=== PATIENT | female | born 2000 | race Caucasian/White ===

== ENCOUNTER 2019-05-31 17:34 | Emergency (ER) | payer MEDICAID ==
--- NOTE | 2019-05-31 18:37 | ER Document Report ---
ED Medical Screen (RME) - General Chief Complaint: Ear Pain Stated Complaint: EAR PAIN Time Seen by Provider: 05/31/19 18:30 Information source: Patient Notes: Patient presents complaining of left ear pain, sore throat pelvic pain with vaginal spotting. Patient had an IUD recently placed last month. I have greeted and performed a rapid initial assessment of this patient. A comprehensive ED assessment and evaluation of the patient, analysis of test results and completion of the medical decision making process will be conducted by additional ED providers. - Related Data Allergies/Adverse Reactions: No Known Allergies Allergy (Unverified 05/31/19 18:14) Physical Exam - Vital signs Vitals: Temp Pulse Resp BP Pulse Ox 98.4 F 92 16 120/72 100 05/31/19 18:11 05/31/19 18:11 05/31/19 18:11 05/31/19 18:11 05/31/19 18:11 - General General appearance: Appears well, Alert Notes: Lower pelvic tenderness, left ear pain Course - Vital Signs Vital signs: Temp Pulse Resp BP Pulse Ox 98.4 F 92 16 120/72 100 05/31/19 18:11 05/31/19 18:11 05/31/19 18:11 05/31/19 18:11 05/31/19 18:11
--- NOTE | 2019-05-31 19:48 | RADIOLOGY REPORT (SQ) ---
EXAM DESCRIPTION: U/S NON OB PEL TV W/DOPPLER COMPLETED DATE/TIME: 05/31/2019 7:36 pm REASON FOR STUDY: pelvic pain, spotting, eval IUD COMPARISON: None. TECHNIQUE: Dynamic and static grayscale images acquired of the pelvis via transvaginal approach and recorded on PACS. Additional selected color Doppler and spectral images recorded. LIMITATIONS: None. FINDINGS: UTERUS: Contour normal. No mass. ENDOMETRIAL STRIPE: IUD present in expected position. No masses identified. CERVIX: Tiny nabothian cysts. RIGHT OVARY AND DOPPLER: Normal size. No worrisome masses. Normal arterial vascular flow without evid ence for torsion. LEFT OVARY AND DOPPLER: Normal size. No worrisome masses. Normal arterial vascular flow without evide nce for torsion. FREE FLUID: None noted. OTHER: No other significant finding. MEASUREMENTS: UTERUS: 5.9 x 3.7 x 4.2 cm ENDOMETRIAL STRIPE: 6 mm RIGHT OVARY: 3.3 x 2.9 x 2.7 cm LEFT OVARY: 3.2 x 1.9 x 1.6 cm IMPRESSION: IUD present in expected position. Age-appropriate exam. TECHNICAL DOCUMENTATION: JOB ID: [id number] [place]-72 2010 [employer]- All Rights Reserved Rev Reading location - IP/workstation name: [email or web address]
[2019-05-31] MEDS ORDERED: ACETAMINOPHEN 325 MG TABLET PO ONE (20:12)
--- NOTE | 2019-05-31 21:10 | ER Document Report ---
ED General - General Chief Complaint: Ear Pain Stated Complaint: EAR PAIN Time Seen by Provider: 05/31/19 18:30 Primary Care Provider: [facility] [Provider Group] - Follow up in 1 week - [facility] Notes: 19-year-old female to the emergency department with complaints of left ear pain for the past several days and pelvic cramping and vaginal bleeding for the past several weeks after having a Mirena IUD placed on April 30. She denies any sore throat, cough, fevers, chills. She states that it feels like her ear canal is swollen and also the outer ear. Does report that her ear pain does run down to the side of her jaw and it feels like her throat hurts. She has not taken any medicine for her pain. She states that her NUTRITION REPRESENTATIVE did tell her that the Mirena could cause cramping and bleeding but that is atypical for her and so she wanted to have the IUD evaluated. She denies any concern for STD. She denies urinary complaints. - Related Data Allergies/Adverse Reactions: No Known Allergies Allergy (Unverified 05/31/19 18:14) Past Medical History - General Information source: Patient - Social History Smoking Status: Never Smoker Frequency of alcohol use: Occasional Drug Abuse: None Family History: Reviewed & Not Pertinent Patient has suicidal ideation: No Patient has homicidal ideation: No Renal/ Medical History: Denies: Hx Peritoneal Dialysis Review of Systems - Review of Systems Constitutional: denies: Chills, Fever EENT: Ear pain Cardiovascular: denies: Chest pain, Palpitations, Syncope, Dizziness, Lightheaded Respiratory: denies: Cough, Short of breath Gastrointestinal: denies: Diarrhea, Nausea, Vomiting Genitourinary: denies: Frequency, Flank pain, Hematuria Female Genitourinary: Heavy/abnormal periods, Vaginal bleeding, Other - Cramping. denies: Musculoskeletal: No symptoms reported Skin: No symptoms reported Neurological/Psychological: No symptoms reported -: Yes All other systems reviewed and negative Physical Exam - Vital signs Vitals: Temp Pulse BP Pulse Ox 98.4 F 97 120/72 98 05/31/19 18:07 05/31/19 18:07 05/31/19 18:07 05/31/19 18:07 Interpretation: Normal - General General appearance: Appears well, Alert In distress: None - HEENT Head: Normocephalic, Atraumatic Eyes: Normal Pupils: PERRL External canal: Erythema, Swollen, Other - There is mild erythema and edema to the outer left ear canal. There is pain with pulling on the auricle. The left TM is mildly erythematous without bulging or rupture.. No: Blood in canal, Cerumen impaction Sinus: Normal Nasal: Normal Mouth/Lips: Normal Mucous membranes: Normal Pharynx: Normal Neck: Normal - Respiratory Respiratory status: No respiratory distress Chest status: Nontender Breath sounds: Normal Chest palpation: Normal - Cardiovascular Rhythm: Regular Heart sounds: Normal auscultation Murmur: No - Abdominal Inspection: Normal Distension: No distension Bowel sounds: Normal Tenderness: Nontender Organomegaly: No organomegaly - Genitourinary Notes: Patient declines pelvic exam - Back Back: Normal, Nontender - Extremities General lower extremity: No: Judy's sign - Neurological Neuro grossly intact: Yes Cognition: Normal Orientation: AAOx4 Eduardo Coma Scale Eye Opening: Spontaneous Eduardo Coma Scale Verbal: Oriented [place] Coma Scale Motor: Obeys Commands Eduardo Coma Scale Total: 15 Speech: Normal Motor strength normal: LUE, RUE, LLE, RLE Sensory: Normal - Psychological Associated symptoms: Normal affect, Normal mood - Skin Skin Temperature: Warm Skin Moisture: Dry Skin Color: Normal Course - Vital Signs Vital signs: Temp Pulse Resp BP Pulse Ox 98.4 F 70 15 119/73 100 05/31/19 18:11 05/31/19 21:47 05/31/19 21:47 05/31/19 21:47 05/31/19 21:47 - Diagnostic Test Radiology reviewed: Image reviewed, Reports reviewed - Noted ultrasound reading with IUD in place. - Transfer of Care Notes: 06/01/19 impression: The cramping after IUD placement with vaginal bleeding. Left otitis externa with concern for possible evolving otitis media. Ultrasound shows IUD in appropriate position. UA is reassuring. Patient will not allow for pelvic exam tonight. Will treat otitis externa with antibiotic eardrops and also go ahead and start on oral antibiotics for possible evolving otitis media. Patient agrees with the plan. We will have her follow with primary care in the next several days. Have urged her to return if she is worse at all. Do not think that she needs further blood work. Discharge - Discharge Clinical Impression: Otitis externa, Left ear pain, Pelvic pain, IUD (intrauterine device) in place Condition: Good Disposition: HOME, SELF-CARE Additional Instructions: COMPLETE ANTIBIOTICS. RETURN IF WORSE. PUSH FLUIDS. RETURN IF WORSE. Prescriptions: Amoxicillin [Amoxicillin Trihydrate] 500 gm MC TID #30 powder Neomy Sulf/Polymyx B Sulf/Hc [Cortisporin Ear Suspension] 10 ml OT QID #1 bottle Referrals: [facility] [Provider Group] - Follow up in 1 week
[2019-05-31 21:23] LABS: APPEARANCE,URINE CLEAR; BILIRUBIN,URINE NEGATIVE (NEGATIVE); COLOR,URINE COLORLESS; GLUCOSE, URINE NEGATIVE (NEGATIVE); KETONES,URINE NEGATIVE (NEGATIVE); LEUKOCYTE ESTERASE,URINE NEGATIVE (NEGATIVE); NITRITE,URINE NEGATIVE (NEGATIVE); PROTEIN,URINE NEGATIVE (NEGATIVE); UROBILINOGEN,URINE NEGATIVE mg/dL (<2.0)
[2019-05-31 21:34] LABS: URINE SPECIFIC GRAVITY 1.011
[2019-05-31 21:51] VITALS: BP 119/73
== END 2019-05-31 21:51 | disposition home or self-care (01) ==
LOC: ER 17:34
DX: H60.92 Unspecified otitis externa, left ear (principal); H92.02 Otalgia, left ear; R10.2 Pelvic and perineal pain; N93.9 Abnormal uterine and vaginal bleeding, unspecified; Z97.5 Presence of (intrauterine) contraceptive device
CPT/HCPCS: 76830; 81001; 81025; 87070; 87880; 93976; 99283

== ENCOUNTER 2019-07-01 14:12 | Emergency (ER) | payer MEDICAID ==
--- NOTE | 2019-07-01 14:34 | ER Document Report ---
ED Medical Screen (RME) - General Chief Complaint: Lower Abdominal Pain Stated Complaint: ABDOMINAL PAIN Time Seen by Provider: 07/01/19 14:29 Mode of Arrival: Ambulatory Information source: Patient Notes: 19-year-old female presented to ED for complaint of right lower quadrant/pelvic pain weeks. She states she was having episodes of passing out from June of last year until April of this year and she stopped and then she passed out again yesterday. She states she has been having nausea but no vomiting. She states she might of hit her head yesterday but there is no neurological deficits. She has a history of ovarian cyst. She states she has had decreased appetite for the last week as well as diarrhea off and on for this week but she is only had one stool today. She does have a history of ovarian cyst asthma hypothyroid cyst removed from a hand and ear tubes. She is alert oriented respirations regular and unlabored speaking in full sentences and walks with even steady gait. I have greeted and performed a rapid initial assessment of this patient. A comprehensive ED assessment and evaluation of the patient, analysis of test results and completion of medical decision making process will be conducted by an additional ED providers. Dictation of this chart was performed using voice recognition software; therefore, there may be some unintended grammatical errors. TRAVEL OUTSIDE OF THE [place] IN LAST 30 DAYS: No - Related Data Allergies/Adverse Reactions: No Known Allergies Allergy (Verified 07/01/19 14:13) Past Medical History Renal/ Medical History: Denies: Hx Peritoneal Dialysis Physical Exam - Vital signs Vitals: Temp Pulse Resp BP Pulse Ox 97.9 F 105 H 14 139/72 H 97 07/01/19 14:16 07/01/19 14:16 07/01/19 14:16 07/01/19 14:16 07/01/19 14:16 Course - Vital Signs Vital signs: Temp Pulse Resp BP Pulse Ox 97.9 F 105 H 14 139/72 H 97 07/01/19 14:16 07/01/19 14:16 07/01/19 14:16 07/01/19 14:16 07/01/19 14:16
[2019-07-01 15:10] LABS: ABSOLUTE BASOPHILS # (AUTO) 0.1 10^3/uL (0.0-0.2); ABSOLUTE EOSINOPHILS # (AUTO) 0.2 10^3/uL (0.0-0.6); ABSOLUTE LYMPHOCYTES (AUTO) 2.4 10^3/uL (0.5-4.7); ABSOLUTE MONOCYTES (AUTO) 0.8 10^3/uL (0.1-1.4); BASOPHILS % (AUTO) 0.9 % (0-2); EOSINOPHILS % (AUTO) 2.3 % (0-6); HEMATOCRIT 41.8 % (36.0-47.0); HEMOGLOBIN 13.7 g/dL (12.0-15.5); LYMPHOCYTES % (AUTO) 25.5 % (13-45); MEAN CORPUSCULAR HEMOGLOBIN 27.7 pg (27.0-33.4); MEAN CORPUSCULAR HGB CONC 32.9 g/dL (32.0-36.0); MEAN CORPUSCULAR VOLUME 84 fl (80-97); MONOCYTES % (AUTO) 8.3 % (3-13); PLATELET COUNT 188 10^3/uL (150-450); RED BLOOD COUNT 4.96 10^6/uL (3.72-5.28); RED CELL DISTRIBUTION WIDTH 14.1 % (11.5-14.0); TOTAL CELLS COUNTED % (AUTO) 100 %; WHITE BLOOD COUNT 9.5 10^3/uL (4.0-10.5)
[2019-07-01 15:27] LABS: APPEARANCE,URINE SLIGHTLY-CLOUDY; BILIRUBIN,URINE NEGATIVE (NEGATIVE); COLOR,URINE YELLOW; GLUCOSE, URINE NEGATIVE (NEGATIVE); KETONES,URINE NEGATIVE (NEGATIVE); LEUKOCYTE ESTERASE,URINE MODERATE (NEGATIVE); NITRITE,URINE NEGATIVE (NEGATIVE); PROTEIN,URINE NEGATIVE (NEGATIVE); UROBILINOGEN,URINE NEGATIVE mg/dL (<2.0)
[2019-07-01 15:32] LABS: ALBUMIN 4.7 g/dL (3.5-5.0); ALKALINE PHOSPHATASE 77 U/L (38-126); ANION GAP 12 (5-19); ASPARTATE AMINO TRANSFERASE 21 U/L (14-36); BILIRUBIN,DIRECT 0.1 mg/dL (0.0-0.4); BILIRUBIN,TOTAL 0.5 mg/dL (0.2-1.3); BLOOD UREA NITROGEN 13 mg/dL (7-20); CALCIUM 9.4 mg/dL (8.4-10.2); CARBON DIOXIDE 25 mmol/L (22-30); CHLORIDE 101 mmol/L (98-107); CREATINE KINASE 116 U/L (30-135); GLUCOSE 80 mg/dL (75-110); TOTAL PROTEIN 7.8 g/dL (6.3-8.2)
--- NOTE | 2019-07-01 15:33 | RADIOLOGY REPORT (SQ) ---
EXAM DESCRIPTION: U/S ABDOMEN LTD W/DOPPLER COMPLETED DATE/TIME: 07/01/2019 3:20 pm REASON FOR STUDY: check appendix and gall bladder kidney COMPARISON: None. TECHNIQUE: Dynamic and static grayscale images acquired of the abdomen and recorded on PACS. Additio nal selected color Doppler and spectral images recorded. LIMITATIONS: None. FINDINGS: PANCREAS: No masses. Visualized pancreatic duct normal caliber. LIVER: No masses. Echotexture normal. LIVER VASCULATURE: Normal directional flow of the main portal vein and hepatic veins. GALLBLADDER: No stones. Normal wall thickness. No pericholecystic fluid. ULTRASOUND-DETECTED ALVARENGA'S SIGN: Negative. INTRAHEPATIC DUCTS AND COMMON DUCT: CBD and intrahepatic ducts normal caliber. No filling defects. INFERIOR VENA CAVA: Normal flow. AORTA: No aneurysm identified. RIGHT KIDNEY: Normal size. Normal echogenicity. No solid or suspicious masses. No hydronephros is. No calcifications. PERITONEAL AND RIGHT PLEURAL SPACE: No ascites or effusions. OTHER: Appendix not visualized in the right lower quadrant. IMPRESSION: NO ACUTE FINDINGS. Appendix not visualized in the right lower quadrant. TECHNICAL DOCUMENTATION: JOB ID: [id number] [place]-72 2010 [employer]- All Rights Reserved Reading location - IP/workstation name: [email or web address]
[2019-07-01 15:37] LABS: ADD MANUAL MICROSCOPIC YES
[2019-07-01 15:38] LABS: BACTERIA,URINE TRACE /HPF; RBC,URINE 0-1 /HPF
--- NOTE | 2019-07-01 15:58 | RADIOLOGY REPORT (SQ) ---
EXAM DESCRIPTION: U/S NON OB PEL TV W/DOPPLER COMPLETED DATE/TIME: 07/01/2019 3:42 pm REASON FOR STUDY: right lower abdominal pain COMPARISON: 05/31/2019 TECHNIQUE: Dynamic and static grayscale images acquired of the pelvis via transvaginal approach and recorded on PACS. Additional selected color Doppler and spectral images recorded. LIMITATIONS: None. FINDINGS: UTERUS: Contour normal. No mass. ENDOMETRIAL STRIPE: No focal or generalized thickening. No masses. IUD is present in the endometrial cavity. CERVIX: No nabothian cysts. RIGHT OVARY AND DOPPLER: Normal size. No worrisome masses. Multiple small follicles. Normal arteria l vascular flow without evidence for torsion. LEFT OVARY AND DOPPLER: Normal size. No worrisome masses. Cyst measuring 3.1 cm. Normal arterial va scular flow without evidence for torsion. FREE FLUID: None noted. OTHER: No other significant finding. MEASUREMENTS: UTERUS: 7.9 x 4.3 x 3.9 cm ENDOMETRIAL STRIPE: 4 mm. IUD is present in the endometrial cavity. RIGHT OVARY: 2.2 x 2.7 x 1.7 cm LEFT OVARY: 3.5 x 2.8 x 2.9 cm IMPRESSION: 1. IUD is present in the endometrial cavity without significant change in position comp ared to prior examination. 2. Simple left ovarian cyst, almost certainly benign and functional. 3. No ultrasound findings to explain right lower quadrant abdominal pain. Consider additional imagi ng to further evaluate unexplained abdominal pain. TECHNICAL DOCUMENTATION: JOB ID: [id number] [employer]- All Rights Reserved Rev Reading location - IP/workstation name: [email or web address]
[2019-07-01] MEDS ORDERED: HYDROCODONE/ACETAMINOPHEN 5-325 MG TABLET PO ONE (18:13)
[2019-07-01] MEDS ORDERED: NORMAL SALINE 1000 ML 1,000 ML IV ONE ×2 (18:34→20:30)
--- NOTE | 2019-07-01 18:35 | ER Document Report ---
ED GI/ - General Chief Complaint: Lower Abdominal Pain Stated Complaint: ABDOMINAL PAIN Time Seen by Provider: 07/01/19 14:29 Primary Care Provider: [facility] [Provider Group] - Follow up as needed [facility] [Provider Group] - Follow up as needed Mode of Arrival: Ambulatory Information source: Patient Notes: Patient presents complaining of lower pelvic pain for the past 3 days. Patient states pain is been constant, although moves from suprapubic left lower quadrant and right lower quadrant areas but is primarily to the suprapubic area.. Patient reports nausea as well as diarrhea although denies any vomiting. Patient does report vaginal discharge and pain with intercourse. Patient denies any vaginal bleeding fever or urinary symptoms. TRAVEL OUTSIDE OF THE [place] IN LAST 30 DAYS: No - HPI Patient complains to provider of: Diarrhea, Pelvic pain, Vaginal discharge. No: , Vomiting Onset: Other - 3 days Timing/Duration: Persistent Quality of pain: Achy Pain Level: 3 Context: denies: Location: Suprapubic, Pelvis Vaginal bleeding (Compared to normal period): None Sexual history: Active Associated symptoms: Diarrhea, Nausea, Vaginal discharge. denies: Dysuria, Fever, Urinary hesitancy, Urinary frequency, Urinary retention, Vomiting Exacerbated by: Denies Relieved by: Denies Similar symptoms previously: Yes - Ovarian cyst Recently seen / treated by doctor: No - Related Data Allergies/Adverse Reactions: No Known Allergies Allergy (Verified 07/01/19 14:13) Past Medical History - General Information source: Patient - Social History Smoking Status: Current Every Day Smoker Frequency of alcohol use: None Drug Abuse: None Occupation: None Lives with: Family Family History: Reviewed & Not Pertinent Patient has suicidal ideation: No Patient has homicidal ideation: No - Past Medical History Cardiac Medical History: Reports: Other - Syncope Pulmonary Medical History: Reports: Hx Asthma Neurological Medical History: Reports: Hx Migraine Endocrine Medical History: Reports: Hx Hypothyroidism Renal/ Medical History: Denies: Hx Peritoneal Dialysis GI Medical History: Reports: Hx Gastroesophageal Reflux Disease Musculoskeletal Medical History: Reports Hx Fibromyalgia Past Surgical History: Reports: Other - Cyst removal Review of Systems - Review of Systems Constitutional: No symptoms reported. denies: Fever, Recent illness EENT: No symptoms reported Cardiovascular: No symptoms reported. denies: Chest pain Respiratory: No symptoms reported. denies: Cough, Short of breath Gastrointestinal: Abdominal pain, Diarrhea, Nausea. denies: Vomiting Genitourinary: No symptoms reported. denies: Dysuria, Flank pain Female Genitourinary: Vaginal discharge, Painful intercourse. denies: Musculoskeletal: No symptoms reported. denies: Back pain Skin: No symptoms reported Hematologic/Lymphatic: No symptoms reported Neurological/Psychological: No symptoms reported Physical Exam - Vital signs Vitals: Temp Pulse Resp BP Pulse Ox 97.9 F 105 H 14 139/72 H 97 07/01/19 14:16 07/01/19 14:16 07/01/19 14:16 07/01/19 14:16 07/01/19 14:16 - General General appearance: Appears well, Alert In distress: None - HEENT Head: Normocephalic, Atraumatic Eyes: Normal Conjunctiva: Normal Nasal: Normal Mouth/Lips: Normal Mucous membranes: Normal Neck: Normal, Supple. No: Lymphadenopathy - Respiratory Respiratory status: No respiratory distress Chest status: Nontender Breath sounds: Normal Chest palpation: Normal - Cardiovascular Rhythm: Regular Heart sounds: S1 appreciated, S2 appreciated Murmur: No - Abdominal Inspection: Normal Distension: No distension Bowel sounds: Normal Tenderness: Tender - Suprapubic, right lower pelvic, L lower pelvic. No: McBurney's point, Salguero's sign, Guarding Organomegaly: No organomegaly - Genitourinary External exam: Normal Speculum exam: Vaginal discharge Vaginal bleeding: None Bimanuel exam: Cervical motion tender. No: Adnexal mass, Adnexal tenderness - Back Back: Normal, Nontender. No: CVA tenderness - Extremities General upper extremity: Normal inspection, Normal strength General lower extremity: Normal inspection, Normal strength - Neurological Neuro grossly intact: Yes Cognition: Normal Eduardo Coma Scale Eye Opening: Spontaneous [place] Coma Scale Verbal: Oriented Eduardo Coma Scale Motor: Obeys Commands [place] Coma Scale Total: 15 - Psychological Associated symptoms: Normal affect, Normal mood - Skin Skin Temperature: Warm Skin Moisture: Dry Skin Color: Normal Course - Re-evaluation Re-evalutation: 07/01/19 19:50 Patient's abdomen soft, patient's tenderness to the suprapubic lower pelvic area at this time. No right lower quadrant tenderness. Patient without any fever or leukocytosis. Low concern for appendicitis at this time. Patient does have cervical motion tenderness with vaginal discharge worrisome for PID with incide ntal left ovarian cyst noted on ultrasound. No concern for TOA or torsion. Patient encouraged to return tomorrow for repeat abdominal exam for any persistent abdominal pain or lack of improvement. 07/01/19 20:30 On repeat abdominal exam patient complains of pain in the right lower quadrant area as well as left lower quadrant area. Patient states that pain primarily at this time is to the suprapubic and right lower quadrant. Add on CT imaging at this time. 07/01/19 22:35 CT scan did not visualize appendix. Patient denies any pain to the right lower quadrant at this time. On repeat abdominal exam patient again with suprapubic tenderness and left lower quadrant tenderness at this time. Consulted with Dr. Huertas regarding patient's presentation and diagnostic work-up. Agrees with plan to treat for PID and advises giving good return precautions to have patient return in 24 hours for repeat abdominal exam if she is still having pain. Discussed with patient the fact that her appendix was not visualized on imaging study. Again appendicitis seems less likely given the lack of any elevated white blood cell count, any fever, or any pain to the right lower quadrant at this time despite having continued pain to the left lower quadrant. Patient does have discharge and cervical motion tenderness consistent with PID. Patient encouraged to return in 24 hours for repeat abdominal exam if she is having persistent right lower quadrant pain. Patient instructed to return for any worsening of symptoms. - Vital Signs Vital signs: Temp Pulse Resp BP Pulse Ox 98.6 F 88 17 133/68 H 100 07/01/19 22:39 07/01/19 22:39 07/01/19 22:39 07/01/19 22:39 07/01/19 22:39 - Laboratory Result Diagrams: 07/01/19 14:40 07/01/19 14:40 Laboratory results interpreted by me: 07/01/19 07/01/19 14:40 14:40 RDW 14.1 H Urine Blood SMALL H Ur Leukocyte Esterase MODERATE H 07/01/19 20:11 Labs- Entire Visit 07/01/19 07/01/19 07/01/19 14:40 14:40 14:40 WBC 9.5 RBC 4.96 Hgb 13.7 Hct 41.8 MCV 84 MCH 27.7 MCHC 32.9 RDW 14.1 H Plt Count 188 Seg Neutrophils % 63.0 Lymphocytes % 25.5 Monocytes % 8.3 Eosinophils % 2.3 Basophils % 0.9 Absolute Neutrophils 6.0 Absolute Lymphocytes 2.4 Absolute Monocytes 0.8 Absolute Eosinophils 0.2 Absolute Basophils 0.1 Sodium 137.8 Potassium 5.0 Chloride 101 Carbon Dioxide 25 Anion Gap 12 BUN 13 Creatinine 0.83 Est GFR ( Amer) > 60 Est GFR (Non-Af Amer) > 60 Glucose 80 Calcium 9.4 Total Bilirubin 0.5 Direct Bilirubin 0.1 Neonat Total Bilirubin Not Reportable Neonat Direct Bilirubin Not Reportable Neonat Indirect Bili Not Reportable AST 21 ALT 15 Alkaline Phosphatase 77 Creatine Kinase 116 Total Protein 7.8 Albumin 4.7 Lipase 147.9 Serum HCG, Qual NEGATIVE Urine Color Urine Appearance Urine pH Ur Specific [place] Urine Protein Urine Glucose (UA) Urine Ketones Urine Blood Urine Nitrite Urine Bilirubin Urine Urobilinogen Ur Leukocyte Esterase Urine RBC Urine WBC Ur Squamous Epith Cells Urine Bacteria Urine Ascorbic Acid Epi Cells (Wet Prep) Bacteria (Wet Prep) Trichomonas (Wet Prep) Vaginal WBC Vaginal RBC Vaginal Yeast 07/01/19 07/01/19 14:40 18:40 WBC RBC Hgb Hct MCV MCH MCHC RDW Plt Count Seg Neutrophils % Lymphocytes % Monocytes % Eosinophils % Basophils % Absolute Neutrophils Absolute Lymphocytes Absolute Monocytes Absolute Eosinophils Absolute Basophils Sodium Potassium Chloride Carbon Dioxide Anion Gap BUN Creatinine Est GFR ( Amer) Est GFR (Non-Af Amer) Glucose Calcium Total Bilirubin Direct Bilirubin Neonat Total Bilirubin Neonat Direct Bilirubin Neonat Indirect Bili AST ALT Alkaline Phosphatase Creatine Kinase Total Protein Albumin Lipase Serum HCG, Qual Urine Color YELLOW Urine Appearance SLIGHTLY-CLOUDY Urine pH 6.0 Ur Specific [place] 1.010 Urine Protein NEGATIVE Urine Glucose (UA) NEGATIVE Urine Ketones NEGATIVE Urine Blood SMALL H Urine Nitrite NEGATIVE Urine Bilirubin NEGATIVE Urine Urobilinogen NEGATIVE Ur Leukocyte Esterase MODERATE H Urine RBC 0-1 Urine WBC 1-5 Ur Squamous Epith Cells FEW Urine Bacteria TRACE Urine Ascorbic Acid NEGATIVE Epi Cells (Wet Prep) 3+ EPITHELIALS SEEN Bacteria (Wet Prep) 4+ BACTERIA SEEN Trichomonas (Wet Prep) NO TRICHOMONAS SEEN Vaginal WBC 4+ WBCS SEEN Vaginal RBC 2+ RBCS SEEN Vaginal Yeast NO YEAST SEEN - Diagnostic Test Radiology reviewed: Reports reviewed - EKG Interpretation by Me EKG shows normal: Sinus rhythm Rate: Normal Rhythm: NSR Additional EKG results interpreted by me: 07/01/19 19:[address] elevation or T wave inversion. QTc 445 Discharge - Discharge Clinical Impression: PID (acute pelvic inflammatory disease), Bacterial vaginosis, Pelvic pain Ovarian cyst Qualifiers: Laterality: left Qualified Code(s): N83.202 - Unspecified ovarian cyst, left side Condition: Stable Disposition: HOME, SELF-CARE Instructions: Doxycycline ([facility]), Metronidazole ([facility]), Ovarian Cyst ([facility]), Pelvic Inflammatory Disease ([facility]), Rocephin ([facility]), Vaginosis, Bacterial ([facility]) Additional Instructions: Return immediately for any new or worsening symptoms Followup with your primary care provider, call tomorrow to make a followup appointment Return tomorrow for repeat abdominal exam if you are not having any improvement of your pelvic pain symptoms. Return immediately for any worsening pain, pain that localizes to the right lower pelvic area, fever, vomiting or any other concerning symptoms. Prescriptions: Doxycycline Hyclate 100 mg PO BID #28 capsule Metronidazole [Flagyl 500 mg Tablet] 500 mg PO BID #28 tablet Naproxen [Naprosyn 250 Nmg Tablet] 1 tab PO BID #14 tablet Referrals: [facility] [Provider Group] - Follow up as needed [facility] [Provider Group] - Follow up as needed
[2019-07-01] MEDS ORDERED: CEFTRIAXONE 1 GM/D5W RTU 1 GM/50 ML RTUPB IV ONE (18:41)
[2019-07-01] MEDS ORDERED: DOXYCYCLINE HYCLATE 100 MG TABLET PO ONE (18:42)
[2019-07-01 18:53] LABS: BACTERIA (WET MOUNT) 4+ BACTERIA SEEN; EPITHELIALS (WET MOUNT) 3+ EPITHELIALS SEEN; RBCS (WET MOUNT) 2+ RBCS SEEN; T.VAGINALIS (WET MOUNT) NO TRICHOMONAS SEEN; WBCS (WET MOUNT) 4+ WBCS SEEN; YEAST (WET MOUNT) NO YEAST SEEN
[2019-07-01] MEDS ORDERED: CEFTRIAXONE INJ 1000 MG VIAL IV ONE (18:57)
[2019-07-01] MEDS ORDERED: METRONIDAZOLE 500 MG TABLET PO ONE (20:25)
[2019-07-01] MEDS ORDERED: FENTANYL CITRATE INJ/PF 100 MCG/2 ML AMPUL IV ONE (20:30)
[2019-07-01 20:31] LABS: CHLAM PCR NOT DETECTED (NOT DETECT)
--- NOTE | 2019-07-01 21:52 | RADIOLOGY REPORT (SQ) ---
EXAM DESCRIPTION: CT ABDOMEN PELVIS WITH IV CONTRAST COMPLETED DATE/TME: 07/01/2019 20:29 CLINICAL HISTORY: Lower abdominal pain. COMPARISON: None Available. TECHNIQUE: CT of the abdomen and pelvis performed following IV administration of 81 mL of Omnipaque 240. DLP: 1082.83 mGycm FINDINGS: Lung Bases: The visualized lung bases are clear. Bones: No destructive bone lesions identified. Abdomen: Liver: The liver has normal size and density. No intrahepatic mass or biliary dilatation. Gallbladder: No calcified gallstones. Spleen, Pancreas, and Adrenal Glands: The spleen, pancreas, and adrenal glands are unremarkable. Kidneys: The kidneys have normal size and contour without evidence of solid mass or hydronephrosis. Vasculature: The aorta and IVC have normal caliber and position. The portal vein is patent. The proximal visceral and renal arteries are patent. Stomach: The stomach and duodenum have normal course. Other: No free intraperitoneal air. Small amount of free fluid. Pelvis: Bladder: Urinary bladder is unremarkable. Bowel: No dilated loops of large or small bowel. Appendix: Not identified. Pelvis: IUD identified. 2.9 x 2.8 x 2.2 cm simple appearing left ovarian cyst. IMPRESSION: 1. No acute inflammatory or obstructive process identified. 2. 2.9 cm benign appearing left ovarian cyst. No follow-up imaging is recommended. Reference: J Am Sky Radiol 2013;10:675-681 3. Small amount of free pelvic fluid may be physiologic. This exam was performed according to our departmental dose-optimization program, which includes automated exposure control, adjustment of the mA and/or kV according to patient size and/or use of iterative reconstruction technique.
[2019-07-01 22:41] VITALS: BP 133/68
--- NOTE | 2019-07-02 08:08 | EKG REPORT ---
SEVERITY:- NORMAL ECG - SINUS RHYTHM : Confirmed by: Iron Smith MD 02-Jul-2019 08:07:23
== END 2019-07-01 22:41 | disposition home or self-care (01) ==
LOC: ER 14:12
DX: N73.9 Female pelvic inflammatory disease, unspecified (principal); N76.0 Acute vaginitis; B96.89 Other specified bacterial agents as the cause of diseases classified elsewhere; N83.202 Unspecified ovarian cyst, left side; R10.2 Pelvic and perineal pain; R10.30 Lower abdominal pain, unspecified; R10.32 Left lower quadrant pain; R10.31 Right lower quadrant pain; R11.0 Nausea; R19.7 Diarrhea, unspecified
CPT/HCPCS: 93005; 36415; 87086; 87210; 82550; 83690; 84703; 85025; 80053; 81001; 87491; 87591; 76705; 76830; 93976; 74177; 93010; J3010; J0696; J7030; 96361; 96365; 96375; 99284

== ENCOUNTER 2019-07-03 16:02 | Emergency (ER) | payer OTHER ==
[2019-07-03] MEDS ORDERED: NORMAL SALINE 1000 ML 1,000 ML IV ONE (16:09)
[2019-07-03 16:42] LABS: ABSOLUTE BASOPHILS # (AUTO) 0.1 10^3/uL (0.0-0.2); ABSOLUTE EOSINOPHILS # (AUTO) 0.5 10^3/uL (0.0-0.6); ABSOLUTE LYMPHOCYTES (AUTO) 3.5 10^3/uL (0.5-4.7); ABSOLUTE MONOCYTES (AUTO) 0.9 10^3/uL (0.1-1.4); ABSOLUTE NEUT (AUTO) 7.7 10^3/uL (1.7-8.2); BASOPHILS % (AUTO) 0.8 % (0-2); EOSINOPHILS % (AUTO) 3.8 % (0-6); HEMATOCRIT 41.2 % (36.0-47.0); HEMOGLOBIN 13.3 g/dL (12.0-15.5); LYMPHOCYTES % (AUTO) 27.6 % (13-45); MEAN CORPUSCULAR HEMOGLOBIN 27.5 pg (27.0-33.4); MEAN CORPUSCULAR HGB CONC 32.3 g/dL (32.0-36.0); MEAN CORPUSCULAR VOLUME 85 fl (80-97); MONOCYTES % (AUTO) 7.2 % (3-13); PLATELET COUNT 151 10^3/uL (150-450); RED BLOOD COUNT 4.84 10^6/uL (3.72-5.28); RED CELL DISTRIBUTION WIDTH 14.4 % (11.5-14.0); SEGMENTED NEUTROPHILS % (AUTO) 60.6 % (42-78); TOTAL CELLS COUNTED % (AUTO) 100 %; WHITE BLOOD COUNT 12.6 10^3/uL (4.0-10.5)
[2019-07-03 16:57] LABS: ALBUMIN 4.1 g/dL (3.5-5.0); ALKALINE PHOSPHATASE 85 U/L (38-126); ANION GAP 10 (5-19); ASPARTATE AMINO TRANSFERASE 20 U/L (14-36); BILIRUBIN,DIRECT 0.3 mg/dL (0.0-0.4); BILIRUBIN,TOTAL 0.4 mg/dL (0.2-1.3); BLOOD UREA NITROGEN 8 mg/dL (7-20); CALCIUM 9.2 mg/dL (8.4-10.2); CARBON DIOXIDE 23 mmol/L (22-30); CHLORIDE 108 mmol/L (98-107); CREATINE KINASE 102 U/L (30-135); GLUCOSE 89 mg/dL (75-110); POTASSIUM 4.4 mmol/L (3.6-5.0); TOTAL PROTEIN 7.1 g/dL (6.3-8.2)
--- NOTE | 2019-07-03 16:59 | ER Document Report ---
Entered by DIANE LYNCH SCRIBE 07/03/19 1607 Acting as scribe for:JARED MANCINI MD ED General - General Stated Complaint: ABDOMINAL PAIN Mode of Arrival: Carried Information source: Patient Notes: Patient is a 19-year-old female that was diagnosed with PID x2 days ago that presents to the emergency department today with complaints of abdominal pain. Patient had to be carried from her car at the front entrance of the emergency room as she was "unresponsive" in passenger seat. When the patient's eyelids were opened manually she became responsive. Significant other at bedside reports that the patient frequently passes out "due to pain". Patient states her pain increased this afternoon and it is located below her bellybutton and radiates off to the right. When asked to point with one finger where her pain was most severe she points to the suprapubic region. Patient states she is nauseated but denies any vomiting. Patient denies fevers. TRAVEL OUTSIDE OF THE [place] IN LAST 30 DAYS: No - Related Data Allergies/Adverse Reactions: No Known Allergies Allergy (Verified 07/03/19 16:10) Past Medical History - General Information source: Patient - Social History Smoking Status: Current Every Day Smoker Cigarette use (# per day): No - vape Frequency of alcohol use: None Drug Abuse: None Lives with: Family Family History: Reviewed & Not Pertinent Pulmonary Medical History: Reports: Hx Asthma Neurological Medical History: Reports: Hx Migraine Endocrine Medical History: Reports: Hx Hypothyroidism GI Medical History: Reports: Hx Gastroesophageal Reflux Disease Musculoskeletal Medical History: Reports Hx Fibromyalgia Psychiatric Medical History: Reports: Hx Anxiety, Hx Depression Past Surgical History: Reports: Other - Cyst removal Review of Systems - Review of Systems -: Yes ROS unobtainable due to patient's medical condition Constitutional: denies: Fever EENT: No symptoms reported Cardiovascular: No symptoms reported Respiratory: No symptoms reported Gastrointestinal: See HPI, Abdominal pain, Nausea. denies: Vomiting Genitourinary: No symptoms reported Female Genitourinary: No symptoms reported Musculoskeletal: No symptoms reported Skin: No symptoms reported Hematologic/Lymphatic: No symptoms reported Neurological/Psychological: No symptoms reported -: Yes All other systems reviewed and negative Physical Exam - Vital signs Vitals: Resp Pulse Ox 8 L 99 07/03/19 16:14 07/03/19 16:14 - Notes Notes: Physical Exam: General: Initially acting as if she was unresponsive, when eyelids were opened manually her pupils were dilated and she immedately began responding and talking. Nurse at triage reports that she did not respond to a sternal rub although she had a strong pulse and was breathing appropriately. HEENT: Normocephalic. Atraumatic. PERRL. Extraocular movements intact. Oropharynx clear. Neck: Supple. Non-tender. Respiratory: No respiratory distress. Clear and equal breath sounds bilaterally. Cardiovascular: Regular rate and rhythm. Abdominal: Lower abdominal tenderness with palpation. No distension. Normal Bowel Sounds. Back: Non-tender. No deformity or step off. Extremities: Moves all four extremities. Upper extremities: Normal inspection. Normal ROM. Lower extremities: Normal inspection. No edema. Normal ROM. Neurological: Normal cognition. AAOx4. Normal speech. Psychological: Normal affect. Normal Mood. Skin: Warm. Dry. Normal color. Course - Vital Signs Vital signs: Temp Pulse Resp BP Pulse Ox 98.6 F 18 108/67 100 07/03/19 16:15 07/03/19 17:01 07/03/19 17:01 07/03/19 17:01 - Laboratory Result Diagrams: 07/03/19 16:15 07/03/19 16:15 Laboratory results interpreted by me: 07/03/19 07/03/19 16:15 16:15 WBC 12.6 H RDW 14.4 H Chloride 108 H - Diagnostic Test Radiology reviewed: Image reviewed, Reports reviewed - CT scan today compared to ultrasound and CT scan from 2 days ago. Today the appendix is visualized and is normal. Today the left ovarian cyst is slightly larger than it was 2 days ago. Discharge - Discharge Clinical Impression: Pelvic pain Ovarian cyst Qualifiers: Laterality: left Qualified Code(s): N83.202 - Unspecified ovarian cyst, left side Condition: Stable Disposition: HOME, SELF-CARE Additional Instructions: Your evaluation today suggests that your discomfort continues to come from your inflamed uterus. The CT scan today did show your appendix clearly and it was normal. The scan al so showed the left ovarian cyst which is slightly larger than 2 days ago. You should continue taking the medications that were prescribed 2 days ago. Drink plenty of fluids and get plenty of rest. Take the pain medication as dispensed tonight if needed. Follow-up with [facility] Friday if not improving. RETURN TO THE EMERGENCY ROOM IF ANY NEW OR WORSENING SYMPTOMS. Referrals: [facility] [Provider Group] - Follow up as needed Scribe Attestation: 07/03/19 16:59 I personally performed the services described in the documentation, reviewed and edited the documentation which was dictated to the scribe in my presence, and it accurately records my words and actions. I personally performed the services described in the documentation, reviewed and edited the documentation which was dictated to the scribe in my presence, and it accurately records my words and actions.
[2019-07-03 17:08] LABS: APPEARANCE,URINE CLEAR; BILIRUBIN,URINE NEGATIVE (NEGATIVE); COLOR,URINE STRAW; GLUCOSE, URINE NEGATIVE (NEGATIVE); KETONES,URINE NEGATIVE (NEGATIVE); LEUKOCYTE ESTERASE,URINE NEGATIVE (NEGATIVE); NITRITE,URINE NEGATIVE (NEGATIVE); PROTEIN,URINE NEGATIVE (NEGATIVE); URINE SPECIFIC GRAVITY 1.005; UROBILINOGEN,URINE NEGATIVE mg/dL (<2.0)
[2019-07-03 17:20] LABS: URINE AMPHETAMINES SCREEN NEGATIVE; URINE BARBITURATES SCREEN NEGATIVE; URINE BENZODIAZEPINES SCREEN NEGATIVE; URINE COCAINE SCREEN NEGATIVE; URINE MARIJUANA (THC) SCREEN NEGATIVE; URINE METHADONE SCREEN NEGATIVE; URINE PHENCYCLIDINE SCREEN NEGATIVE
[2019-07-03] MEDS ORDERED: KETOROLAC TROMETHAMINE INJ/PF 30 MG/1 ML SDV IV ONE (18:11)
--- NOTE | 2019-07-03 19:15 | RADIOLOGY REPORT (SQ) ---
EXAM DESCRIPTION: CT ABD/PELVIS WITH IV ONLY COMPLETED DATE/TIME: 07/03/2019 7:01 pm REASON FOR STUDY: Pelvic pain COMPARISON: 07/01/2019 TECHNIQUE: CT scan of the abdomen and pelvis performed using helical scanning technique with dynamic intravenous contrast injection. No oral contrast. Images reviewed with lung, soft tissue, and bone windows. Reconstructed coronal and sagittal MPR images reviewed. Delayed images for evaluation of the urinary system also acquired. All images stored on PACS. All CT scanners at this facility use dose modulation, iterative reconstruction, and/or weight based d osing when appropriate to reduce radiation dose to as low as reasonably achievable (ALARA). [facility]: Dose Right [facility]: CareDose [facility]: Dose Right [facility]: Teradose 4D [facility]: LPATH CONTRAST TYPE AND DOSE: contrast/concentration: Isovue 350.00 mg/ml; Total Contrast Delivered: 85.0 ml; Total Saline Delivered: 40.0 ml RENAL FUNCTION: BUN 8; creatinine 0.76 RADIATION DOSE: CT Rad equipment meets quality standard of care and radiation dose reduction techniq ues were employed. CTDIvol: 8.1 - 10.9 mGy. DLP: 997 mGy-cm.. LIMITATIONS: None. FINDINGS: LOWER CHEST: No significant findings. No nodules or infiltrates. LIVER: Normal size. No masses. No dilated ducts. SPLEEN: Normal size. No focal lesions. PANCREAS: No masses. No significant calcifications. No adjacent inflammation or peripancreatic fluid collections. Pancreatic duct not dilated. GALLBLADDER: No identified stones by CT criteria. No inflammatory changes to suggest cholecystitis. ADRENAL GLANDS: No significant masses or asymmetry. RIGHT KIDNEY AND URETER: No solid masses. No significant calcifications. No hydronephrosis or hyd roureter. LEFT KIDNEY AND URETER: No solid masses. No significant calcifications. No hydronephrosis or hydr oureter. AORTA AND VESSELS: No aneurysm. No dissection. Renal arteries, SMA, celiac without stenosis. RETROPERITONEUM: No retroperitoneal adenopathy, hemorrhage or masses. BOWEL AND PERITONEAL CAVITY: No masses or inflammatory changes. No free fluid or peritoneal masses. APPENDIX: Normal. PELVIS: A 4.5 cm dominant follicle within the left ovary is increased in size relative to 07/01/2019 im aging. No concerning features. The uterus and right ovary are unchanged. No free peritoneal fluid. ABDOMINAL WALL: No masses. No hernias. BONES: No significant or acute findings. OTHER: No other significant finding. IMPRESSION: No findings to correlate to the patient's reported right lower quadrant pain. Chronic a nd incidental findings as detailed above. TECHNICAL DOCUMENTATION: JOB ID: [id number] Quality ID # [id number]: Final reports with documentation of one or more dose reduction techniques (e.g., Au tomated exposure control, adjustment of the mA and/or kV according to patient size, use of iterative reconstruction technique) 2010 [email or web address]- All Rights Reserved Reading location - IP/workstation name: [email or web address]
[2019-07-03] MEDS ORDERED: HYDROCODONE/ACETAMINOPHEN 5-325 MG (6 TAB/ER DISP) PO PRN (19:34)
[2019-07-03 19:49] VITALS: BP 111/69
== END 2019-07-03 20:03 | disposition home or self-care (01) ==
LOC: ER 16:02
DX: N83.202 Unspecified ovarian cyst, left side (principal); R10.2 Pelvic and perineal pain; R11.0 Nausea; F17.200 Nicotine dependence, unspecified, uncomplicated
CPT/HCPCS: 99284; 96361; 96374; 36415; 82550; 85025; 80053; 81001; 80307; 74177; J1885; J7030